=== PATIENT | female | born 1940 | race Caucasian/White ===

== ENCOUNTER 2018-12-10 18:37 | Inpatient (IN) ==
[2018-12-10] MEDS ORDERED: ALUM/MAG/SIMETH/LIDO VISC 1:1 30 ML BOTTLE PO STA (18:58)
[2018-12-10] MEDS ORDERED: ONDANSETRON 4 MG/2 ML VIAL IV ONE ×2 (18:58→20:57)
[2018-12-10] MEDS ORDERED: MORPHINE 4 MG/1 ML VIAL IV ONE ×2 (18:58→20:57)
[2018-12-10 19:51] LABS: Basophils # 0.1 10*3/uL (0.0-0.2); Basophils % 0.7 % (0.0-0.8); Eosinophils # 0.2 10*3/uL (0.0-0.87); Eosinophils % 2.4 % (0.00-10.9); Hematocrit 40.9 VOL% (35.7-47.0); Hemoglobin 13.4 GM/DL (12.0-16.0); Immature Granulocytes % 0.3 %; Immature Granulocytes Absolute 0.02 #; Lymphocytes # 1.7 10*3/uL (1.4-4.0); Lymphocytes % 23.9 % (21.3-54.2); Mean Corpuscular HGB Conc 32.8 GM/DL (32-36); Mean Corpuscular Volume 86.7 FL (87-102); Mean Platelet Volume 11.6 FL (9.6-12.0); Monocytes % 7.4 % (1.7-12.7); Neutrophils % 65.3 % (38.7-73.9); Platelet Count 282 T/CUMM (130-400); Red Blood Count 4.72 MC/CUMM (3.8-5.5); Red Cell Distribution Width 13.6 % (9.3-17.3); White Blood Count 7.1 T/CUMM (4-12)
[2018-12-10 20:04] LABS: PT Patient Result 10.4 SECS; Partial Thromboplastin Time 26.9 SECS (0-40)
[2018-12-10 20:15] LABS: Alanine Aminotransferase 26 U/L (13-56); Albumin 3.6 G/DL (3.4-5.0); Alkaline Phosphatase 88 U/L (45-117); Aspartate Amino Transferase 19 U/L (0-37); Bilirubin,Total < 0.39 MG/DL (0.2-1.0); Blood Urea Nitrogen 18 MG/DL (7-18); Calcium 8.9 MG/DL (8.5-10.1); Glucose 199 MG/DL (74-106); Osmolality,Calculated 284.5 MOS/KG (273-304); Total Protein 7.2 G/DL (6.4-8.3)
[2018-12-10 20:22] LABS: Troponin I 0.105 NG/ML (0.00-0.045)
[2018-12-10] MEDS ORDERED: NITROGLYCERIN 2% OINT 1 INCH/GM PACK TOP STA (20:57)
[2018-12-10] MEDS ORDERED: ENOXAPARIN 100 MG/ML SYRINGE SUBCUT STA (21:09)
[2018-12-10] MEDS ORDERED: METOPROLOL TARTRATE 5 MG/5 ML VIAL IV STA (21:09)
[2018-12-10] MEDS ORDERED: ASPIRIN 325 MG TABLET PO STA (21:15)
[2018-12-10] MEDS ORDERED: ASPIRIN 325 MG TABLET ONE (21:16)
[2018-12-10] MEDS ORDERED: DOCUSATE SODIUM 100 MG CAPSULE PO PRN (22:01)
[2018-12-10] MEDS ORDERED: MORPHINE 4 MG/1 ML VIAL IV PRN (22:01)
[2018-12-10] MEDS ORDERED: ONDANSETRON 4 MG/2 ML VIAL IV PRN (22:01)
[2018-12-10] MEDS ORDERED: GLUCAGON 1 MG VIAL IM PRN (22:17)
[2018-12-10] MEDS ORDERED: DEXTROSE 50% 25 GM/50 ML VIAL IV PRN (22:17)
[2018-12-11] MEDS: CARVEDILOL 3.125 MG TABLET PO SCH ×3 (00:30→20:59)
[2018-12-11] MEDS: INSULIN REGULAR 100 UNIT/ML SUBCUT SCH ×5 (00:30→21:02)
[2018-12-11] MEDS: SODIUM CHLORIDE 0.9% 1,000 ML IV SCH ×2 (00:31→14:18)
[2018-12-11 04:40] LABS: Basophils # 0.1 10*3/uL (0.0-0.2); Basophils % 0.7 % (0.0-0.8); Eosinophils # 0.2 10*3/uL (0.0-0.87); Eosinophils % 2.9 % (0.00-10.9); Hematocrit 37.8 VOL% (35.7-47.0); Hemoglobin 12.4 GM/DL (12.0-16.0); Immature Granulocytes % 0.4 %; Immature Granulocytes Absolute 0.03 #; Lymphocytes # 2.8 10*3/uL (1.4-4.0); Lymphocytes % 37.9 % (21.3-54.2); Mean Corpuscular HGB Conc 32.8 GM/DL (32-36); Mean Corpuscular Volume 87.9 FL (87-102); Mean Platelet Volume 11.8 FL (9.6-12.0); Neutrophils % 49.1 % (38.7-73.9); Platelet Count 250 T/CUMM (130-400); Red Cell Distribution Width 14.2 % (9.3-17.3); White Blood Count 7.3 T/CUMM (4-12)
[2018-12-11 05:06] LABS: Calcium 8.8 MG/DL (8.5-10.1)
[2018-12-11] MEDS ORDERED: metFORMIN 500 MG TABLET PO SCH (08:00)
[2018-12-11 08:19] LABS: CKMB % 7.3 %
[2018-12-11 08:23] LABS: Troponin I 1.13 NG/ML (0.00-0.045)
[2018-12-11] MEDS ORDERED: diphenhydrAMINE CAP 25 MG CAPSULE PO ONE (08:24)
[2018-12-11] MEDS ORDERED: DIAZEPAM 5 MG TABLET PO ONE (08:24)
[2018-12-11] MEDS ORDERED: SODIUM CHLORIDE 0.9% 1,000 ML IV SCH (08:30)
[2018-12-11] MEDS ORDERED: ASPIRIN 325 MG TABLET ONE (08:46)
[2018-12-11] MEDS ORDERED: ASPIRIN CHEW 81 MG TABLET PO ONE (08:53)
[2018-12-11] MEDS ORDERED: ENOXAPARIN 80 MG/0.8 ML SYRINGE SUBCUT SCH ×2 (09:00)
[2018-12-11] MEDS ORDERED: CLOPIDOGREL 75 MG TABLET PO SCH (09:00)
[2018-12-11] MEDS ORDERED: LIDOCAINE 1% 20 ML VIAL ONE (09:03)
[2018-12-11] MEDS ORDERED: MIDAZOLAM 2 MG/2 ML VIAL ONE (09:12)
[2018-12-11] MEDS ORDERED: fentaNYL 100 MCG/2 ML VIAL ONE (09:17)
[2018-12-11] MEDS: LOSARTAN 50 MG TABLET PO SCH (10:43)
[2018-12-11] MEDS: GLIMEPIRIDE 2 MG TABLET PO SCH (10:43)
[2018-12-11] MEDS: ASPIRIN EC 81 MG TABLET PO SCH (10:44)
[2018-12-11 11:41] LABS: CKMB % 6.8 %
[2018-12-11 11:42] LABS: Troponin I 0.841 NG/ML (0.00-0.045)
[2018-12-11] MEDS ORDERED: ACETAMINOPHEN 325 MG TABLET PO PRN (14:05)
[2018-12-11] MEDS: ATORVASTATIN 20 MG TABLET PO SCH (21:00)
[2018-12-11] MEDS: ENOXAPARIN 40 MG/0.4 ML SYRINGE SUBCUT SCH (21:03)
[2018-12-11] MEDS ORDERED: ENOXAPARIN 40 MG/0.4 ML SYRINGE SUBCUT SCH (22:30)
[2018-12-12] MEDS: SODIUM CHLORIDE 0.9% 1,000 ML IV SCH ×2 (02:25→21:09)
[2018-12-12 05:01] LABS: Basophils % 0.5 % (0.0-0.8); Eosinophils # 0.2 10*3/uL (0.0-0.87); Eosinophils % 3.6 % (0.00-10.9); Hematocrit 37.4 VOL% (35.7-47.0); Hemoglobin 12.1 GM/DL (12.0-16.0); Immature Granulocytes % 0.5 %; Immature Granulocytes Absolute 0.03 #; Lymphocytes # 1.8 10*3/uL (1.4-4.0); Lymphocytes % 29.7 % (21.3-54.2); Mean Corpuscular HGB Conc 32.4 GM/DL (32-36); Mean Corpuscular Volume 88.4 FL (87-102); Mean Platelet Volume 11.3 FL (9.6-12.0); Monocytes % 9.3 % (1.7-12.7); Neutrophils % 56.4 % (38.7-73.9); Platelet Count 235 T/CUMM (130-400); Red Blood Count 4.23 MC/CUMM (3.8-5.5); Red Cell Distribution Width 14.1 % (9.3-17.3); White Blood Count 6.1 T/CUMM (4-12)
[2018-12-12 05:40] LABS: Calcium 8.7 MG/DL (8.5-10.1); Osmolality,Calculated 289.8 MOS/KG (273-304)
[2018-12-12 05:42] LABS: Risk Ratio 4.49; VLDL CHOLESTEROL 78.4 MG/DL
[2018-12-12 05:44] LABS: Bilirubin,Total 1.1 MG/DL (0.2-1.0); Calcium 8.5 MG/DL (8.5-10.1); Osmolality,Calculated 285.1 MOS/KG (273-304); Total Protein 6.1 G/DL (6.4-8.3)
[2018-12-12] MEDS: INSULIN REGULAR 100 UNIT/ML SUBCUT SCH ×4 (09:09→21:10)
[2018-12-12] MEDS: CARVEDILOL 3.125 MG TABLET PO SCH ×2 (09:16→16:53)
[2018-12-12] MEDS: LOSARTAN 50 MG TABLET PO SCH (09:17)
[2018-12-12] MEDS: ASPIRIN EC 81 MG TABLET PO SCH (09:17)
[2018-12-12] MEDS: ENOXAPARIN 40 MG/0.4 ML SYRINGE SUBCUT SCH ×2 (09:17→21:11)
[2018-12-12] MEDS: GLIMEPIRIDE 2 MG TABLET PO SCH (09:17)
[2018-12-12] MEDS ORDERED: NITROGLYCERIN SL 0.4 MG TABLET SL ONE (10:36)
[2018-12-12] MEDS ORDERED: NITROGLYCERIN SL 0.4 MG TABLET SL PRN (11:00)
[2018-12-12] MEDS: CLORAZEPATE 3.75 MG TABLET PO SCH ×3 (15:05→21:10)
[2018-12-12] MEDS: GABAPENTIN 100 MG CAPSULE PO SCH ×2 (21:09→21:18)
[2018-12-12] MEDS: CARVEDILOL 6.25 MG TABLET PO SCH (21:10)
[2018-12-12] MEDS: ATORVASTATIN 20 MG TABLET PO SCH (21:10)
[2018-12-12] MEDS: ACETAMINOPHEN 325 MG TABLET PO SCH (21:11)
[2018-12-12] MEDS: PANTOPRAZOLE 20 MG TABLET PO SCH (21:13)
[2018-12-13] MEDS: SODIUM CHLORIDE 0.9% 1,000 ML IV SCH ×3 (04:42→19:10)
[2018-12-13 05:59] LABS: Basophils % 0.5 % (0.0-0.8); Eosinophils # 0.2 10*3/uL (0.0-0.87); Eosinophils % 4.1 % (0.00-10.9); Hematocrit 35.2 VOL% (35.7-47.0); Hemoglobin 11.6 GM/DL (12.0-16.0); Immature Granulocytes % 0.4 %; Immature Granulocytes Absolute 0.02 #; Lymphocytes # 1.9 10*3/uL (1.4-4.0); Lymphocytes % 33.8 % (21.3-54.2); Mean Corpuscular Volume 88.4 FL (87-102); Mean Platelet Volume 11.8 FL (9.6-12.0); Monocytes % 9.3 % (1.7-12.7); Neutrophils % 51.9 % (38.7-73.9); Platelet Count 213 T/CUMM (130-400); Red Blood Count 3.98 MC/CUMM (3.8-5.5); Red Cell Distribution Width 13.9 % (9.3-17.3); White Blood Count 5.6 T/CUMM (4-12)
[2018-12-13 06:27] LABS: Calcium 8.3 MG/DL (8.5-10.1)
[2018-12-13] MEDS: ASPIRIN EC 81 MG TABLET PO SCH (08:52)
[2018-12-13] MEDS: GABAPENTIN 100 MG CAPSULE PO SCH ×3 (08:52→23:10)
[2018-12-13] MEDS: CARVEDILOL 6.25 MG TABLET PO SCH ×2 (08:53→16:36)
[2018-12-13] MEDS: ACETAMINOPHEN 325 MG TABLET PO SCH ×2 (08:53→23:08)
[2018-12-13] MEDS: CLORAZEPATE 3.75 MG TABLET PO SCH ×3 (08:53→23:08)
[2018-12-13] MEDS: PANTOPRAZOLE 20 MG TABLET PO SCH (08:53)
[2018-12-13] MEDS: GLIMEPIRIDE 2 MG TABLET PO SCH (08:53)
[2018-12-13] MEDS: LOSARTAN 25 MG TABLET PO SCH (08:53)
[2018-12-13] MEDS: ENOXAPARIN 40 MG/0.4 ML SYRINGE SUBCUT SCH ×2 (08:53→23:10)
[2018-12-13] MEDS: INSULIN REGULAR 100 UNIT/ML SUBCUT SCH ×4 (08:56→23:09)
[2018-12-13] MEDS ORDERED: MAGNESIUM SULF RIDER 2 GM in PREMIX 1 EACH IV PRN (09:36)
[2018-12-13] MEDS ORDERED: MAGNESIUM SULF RIDER 4 GM in PREMIX 1 EACH IV PRN (09:36)
[2018-12-13] MEDS: POTASSIUM CHLORIDE 20 MEQ TABLET PO PRN ×3 (09:56→17:49)
[2018-12-13] MEDS ORDERED: CEFUROXIME INJ 1,500 MG in SYRINGE 1 EACH IV ONE (13:52)
[2018-12-13] MEDS ORDERED: DEXTROSE 50% 25 GM/50 ML VIAL IV PRN (13:52)
[2018-12-13] MEDS ORDERED: GLUCAGON 1 MG VIAL IM PRN (13:52)
[2018-12-13 14:41] LABS: ABG Base Excess -1.4 MMOL/L (-2.5-2.5); ABG HCO3 23.2 MMOL/L (20-26); ABG Oxygen Saturation 97.5 % (95-100); ABG PH 7.416 (7.35-7.45); ABG PO2 85.5 MM HG (80-95); ABG TCO2 19.8 MMOL/L (23-27)
[2018-12-13] MEDS: CHLORHEXIDINE 4% SOLN 118 ML BOTTLE TOP SCH ×2 (15:43→23:09)
[2018-12-13] MEDS: ATORVASTATIN 20 MG TABLET PO SCH (23:08)
[2018-12-13] MEDS: CHLORHEXIDINE 0.12% ORAL RINSE 60 ML BOTTLE SWISH/SPIT SCH (23:09)
[2018-12-14] MEDS ORDERED: PAPAVERINE 60 MG/2 ML VIAL ONE (04:21)
[2018-12-14] MEDS ORDERED: VANCOMYCIN 1,000 MG VIAL ONE (04:22)
[2018-12-14] MEDS ORDERED: FAMOTIDINE 20 MG TABLET PO ONE (05:04)
[2018-12-14] MEDS ORDERED: DIAZEPAM 5 MG TABLET PO ONE (05:08)
[2018-12-14 05:40] LABS: Basophils % 0.7 % (0.0-0.8); Eosinophils # 0.2 10*3/uL (0.0-0.87); Eosinophils % 3.8 % (0.00-10.9); Hematocrit 34.6 VOL% (35.7-47.0); Hemoglobin 11.4 GM/DL (12.0-16.0); Immature Granulocytes % 0.5 %; Immature Granulocytes Absolute 0.03 #; Lymphocytes # 1.8 10*3/uL (1.4-4.0); Lymphocytes % 31.1 % (21.3-54.2); Mean Corpuscular HGB Conc 32.9 GM/DL (32-36); Mean Corpuscular Volume 86.9 FL (87-102); Mean Platelet Volume 11.6 FL (9.6-12.0); Monocytes % 10.1 % (1.7-12.7); Neutrophils % 53.8 % (38.7-73.9); Platelet Count 232 T/CUMM (130-400); Red Blood Count 3.98 MC/CUMM (3.8-5.5); Red Cell Distribution Width 13.9 % (9.3-17.3); White Blood Count 5.9 T/CUMM (4-12)
[2018-12-14 05:50] LABS: Osmolality,Calculated 288.8 MOS/KG (273-304)
[2018-12-14] MEDS: CARVEDILOL 6.25 MG TABLET PO SCH ×2 (05:53→08:43)
[2018-12-14] MEDS: SODIUM CHLORIDE 0.9% 1,000 ML IV SCH ×2 (05:54→08:43)
[2018-12-14] MEDS: LOSARTAN 25 MG TABLET PO SCH ×2 (05:55→08:44)
[2018-12-14] MEDS ORDERED: CEFUROXIME 1,500 MG VIAL ONE (06:53)
[2018-12-14 07:45] LABS: ABG Base Excess -1.1 MMOL/L (-2.5-2.5); ABG HCO3 23.5 MMOL/L (20-26); ABG PCO2 31.8 MM HG (35-48); ABG PH 7.451 (7.35-7.45); ABG TCO2 19.9 MMOL/L (23-27); Glucose Heart Surgery 144 MG/DL (74-106); Hemoglobin Heart Surgery 10.7 G/DL (12.0-16.0); Ionized Calcium Arterial 1.18 MMOL/L (1.21-1.46); PCO2 Patient Temp Arterial 31.8 MMHG; PH Patient Temp Arterial 7.451; Patient Temperature 37 CELCIUS; Potassium Heart/CVR 3.5 MMOL/L (3.5-5.1); Sodium Heart/CVR 140 MMOL/L (135-145)
[2018-12-14] MEDS ORDERED: PHENYLEPHRINE DRIP 40 MG/250 ML PREMIX IV ONE (07:53)
[2018-12-14] MEDS ORDERED: NITROPRUSSIDE 50 MG/2 ML VIAL ONE (07:53)
[2018-12-14] MEDS ORDERED: SODIUM BICARBONATE 50 MEQ/50 ML VIAL IV ONE ×2 (07:53→10:46)
[2018-12-14] MEDS ORDERED: POTASSIUM CHLORIDE RIDER 100 ML IV ONE (07:54)
[2018-12-14] MEDS ORDERED: ALBUMIN 5% 12.5 GM/250 ML VIAL IV ONE ×2 (07:54→09:33)
[2018-12-14] MEDS ORDERED: CALCIUM CHLORIDE 1,000 MG/10 ML SYRINGE IV ONE (07:54)
[2018-12-14] MEDS: INSULIN REGULAR 100 UNIT/ML SUBCUT SCH ×2 (08:43→10:46)
[2018-12-14] MEDS: GLIMEPIRIDE 2 MG TABLET PO SCH (08:44)
[2018-12-14] MEDS: CHLORHEXIDINE 4% SOLN 118 ML BOTTLE TOP SCH (08:44)
[2018-12-14] MEDS: ACETAMINOPHEN 325 MG TABLET PO SCH (08:45)
[2018-12-14] MEDS: CLORAZEPATE 3.75 MG TABLET PO SCH (08:45)
[2018-12-14] MEDS: PANTOPRAZOLE 20 MG TABLET PO SCH (08:45)
[2018-12-14] MEDS: ENOXAPARIN 40 MG/0.4 ML SYRINGE SUBCUT SCH (08:45)
[2018-12-14] MEDS: CHLORHEXIDINE 0.12% ORAL RINSE 60 ML BOTTLE SWISH/SPIT SCH (08:45)
[2018-12-14] MEDS: GABAPENTIN 100 MG CAPSULE PO SCH (08:45)
[2018-12-14] MEDS: ASPIRIN EC 81 MG TABLET PO SCH (08:45)
[2018-12-14] MEDS ORDERED: HEPARIN/NACL 0.9% 2 UNITS/ML 500 ML IV ONE (09:12)
[2018-12-14 09:14] LABS: Hematocrit Heart Surgery 20.9 PERCENT (37-47); Hemoglobin Heart Surgery 6.7 G/DL (12.0-16.0); PCO2 Patient Temp Venous 33.6 MM HG; PH Patient Temp Venous 7.435; PO2 Patient Temp Venous 35.4 MM HG; Potassium Heart/CVR 4.6 MMOL/L (3.5-5.1); VBG Base Excess -1.1 MEQ/L (0-4); VBG HCO3 23.3 MEQ/L (24-28); VBG Oxygen Saturation 83.4 %; VBG PCO2 38.9 MMHG (41-51); VBG PH 7.392; VBG PO2 43.5 MMHG (17-40)
[2018-12-14 09:23] LABS: Apearance,Urine CLEAR (Clear); Bacteria,Urine Few /HPF (Few); Bilirubin,Urine Negative (Negative); Blood, Urine Negative (Negative); Glucose,Urine (UA) Negative (Negative); Ketones,Urine Negative (Negative); Mucus,Urine Occasional /LPF (Occasional); Nitrite,Urine Negative (Negative); Protein,Urine Negative; RBC,Urine <1 /HPF (0-4); Squamous Epithelial Cell,Urine Occasional /HPF (0-10); Urine Color Straw (Yellow); Urine Specific Gravity 1.006 (1.001-1.035); Urine Urobilinogen < 2.0 EU/DL (0.2-1.0); WBC,Urine <1 /HPF (0-6)
[2018-12-14 09:47] LABS: Hematocrit Heart Surgery 21.5 PERCENT (37-47); Hemoglobin Heart Surgery 6.9 G/DL (12.0-16.0); PCO2 Patient Temp Venous 28.5 MM HG; PH Patient Temp Venous 7.507; PO2 Patient Temp Venous 27.8 MM HG; Potassium Heart/CVR 4.7 MMOL/L (3.5-5.1); VBG HCO3 24.2 MEQ/L (24-28); VBG Oxygen Saturation 75.5 %; VBG PH 7.462; VBG PO2 34.3 MMHG (17-40)
[2018-12-14] MEDS ORDERED: PHENYLEPHRINE DRIP 20 MG/250 ML PREMIX IV ONE (10:00)
[2018-12-14] MEDS ORDERED: SUFentanil 250 MCG/5 ML AMP ONE (10:00)
[2018-12-14] MEDS ORDERED: CALCIUM CHLORIDE 1,000 MG/10 ML VIAL IV ONE ×2 (10:00→11:35)
[2018-12-14] MEDS ORDERED: VECURONIUM 10 MG VIAL IV ONE (10:01)
[2018-12-14] MEDS ORDERED: ePHEDrine 50 MG/ML AMP ONE (10:01)
[2018-12-14] MEDS ORDERED: MIDAZOLAM 10 MG/2 ML VIAL ONE ×3 (10:01→11:34)
[2018-12-14] MEDS ORDERED: diphenhydrAMINE 50 MG/1 ML VIAL ONE (10:01)
[2018-12-14] MEDS ORDERED: LACTATED RINGERS 1,000 ML IV ONE (10:02)
[2018-12-14] MEDS ORDERED: FAMOTIDINE 20 MG/2 ML VIAL IV ONE (10:02)
[2018-12-14] MEDS ORDERED: SODIUM CHLORIDE 0.9% 1,000 ML IV ONE (10:02)
[2018-12-14] MEDS ORDERED: SODIUM CHLORIDE 0.9% 100 ML IV ONE (10:02)
[2018-12-14] MEDS ORDERED: SODIUM CHLORIDE 0.9% 250 ML IV ONE (10:02)
[2018-12-14 10:35] LABS: ABG Base Excess 1.3 MMOL/L (-2.5-2.5); ABG HCO3 25.6 MMOL/L (20-26); ABG PCO2 35.1 MM HG (35-48); ABG TCO2 23.1 MMOL/L (23-27); Glucose Heart Surgery 275 MG/DL (74-106); Hematocrit Heart Surgery 25.8 PERCENT (37-47); Hemoglobin Heart Surgery 8.3 G/DL (12.0-16.0); Ionized Calcium Arterial 1.38 MMOL/L (1.21-1.46); PCO2 Patient Temp Arterial 35.1 MMHG; Patient Temperature 37 CELCIUS; Potassium Heart/CVR 4.2 MMOL/L (3.5-5.1); Sodium Heart/CVR 136 MMOL/L (135-145)
[2018-12-14] MEDS ORDERED: ALBUMIN 25% 25 GM/100 ML VIAL IV ONE (10:46)
[2018-12-14] MEDS ORDERED: HEPARIN 10,000 UNIT/10 ML VIAL ONE (10:46)
[2018-12-14] MEDS ORDERED: MAGNESIUM SULFATE 5 GM/10 ML VIAL IV ONE (10:46)
[2018-12-14] MEDS ORDERED: DEXTROSE 5% KCL 20 MEQ 20 MEQ/1,000 ML BAG IV ONE (10:46)
[2018-12-14] MEDS ORDERED: PROTAMINE SULFATE 250 MG/25 ML VIAL IV ONE (10:46)
[2018-12-14] MEDS ORDERED: MANNITOL 100 GM/500 ML BAG IV ONE (10:46)
[2018-12-14] MEDS ORDERED: FUROSEMIDE 20 MG/2 ML VIAL ONE (10:47)
[2018-12-14] MEDS ORDERED: methylPREDNISolone SOD SUC 1,000 MG/8 ML VIAL ONE (10:47)
[2018-12-14] MEDS ORDERED: PROTAMINE SULFATE 50 MG/5 ML VIAL IV ONE (10:47)
[2018-12-14] MEDS ORDERED: DOBUTamine 500 MG/250 ML PREMIX IV ONE ×2 (10:57→11:35)
[2018-12-14] MEDS: NITROGLYCERIN DRIP 50 MG/250 ML BOTTLE IV PRN (11:21)
[2018-12-14] MEDS ORDERED: SEVOFLURANE 1 UNIT/15 MINUTE INH ONE (11:35)
[2018-12-14] MEDS ORDERED: INSULIN REGULAR 100 UNIT/ML IV PRN (11:48)
[2018-12-14] MEDS ORDERED: MIDAZOLAM 10 MG/2 ML VIAL IV PRN (11:48)
[2018-12-14] MEDS ORDERED: PHENYLEPHRINE DRIP 40 MG/250 ML PREMIX IV PRN (11:48)
[2018-12-14] MEDS ORDERED: MAGNESIUM SULF RIDER 4 GM in PREMIX 1 EACH IV PRN (11:48)
[2018-12-14] MEDS ORDERED: CALCIUM CHLORIDE 1,000 MG/10 ML SYRINGE IV PRN (11:48)
[2018-12-14] MEDS ORDERED: MORPHINE 10 MG/1 ML VIAL IV PRN (11:48)
[2018-12-14] MEDS ORDERED: ACETAMINOPHEN 650 MG SUPP RECTAL PRN (11:48)
[2018-12-14] MEDS ORDERED: MIDAZOLAM 2 MG/2 ML VIAL IV PRN (11:48)
[2018-12-14] MEDS ORDERED: DEXTROSE 50% 25 GM/50 ML VIAL IV PRN ×2 (11:48)
[2018-12-14] MEDS ORDERED: VECURONIUM 10 MG VIAL IV PRN ×2 (11:48)
[2018-12-14] MEDS ORDERED: NITROPRUSSIDE 100 MG in DEXTROSE 5% 250 ML IV PRN (11:48)
[2018-12-14] MEDS ORDERED: MAGNESIUM SULF RIDER 2 GM in PREMIX 1 EACH IV PRN (11:48)
[2018-12-14] MEDS ORDERED: INSULIN REGULAR 100 UNIT/ML IV ONE (11:48)
[2018-12-14] MEDS ORDERED: LACTATED RINGERS 250 ML IV PRN (11:48)
[2018-12-14] MEDS ORDERED: MORPHINE 4 MG/1 ML VIAL IV PRN (11:48)
[2018-12-14] MEDS ORDERED: ONDANSETRON 4 MG/2 ML VIAL IV PRN (11:48)
[2018-12-14 11:53] LABS: ABG Base Excess 2.1 MMOL/L (-2.5-2.5); ABG HCO3 26.3 MMOL/L (20-26); ABG Oxygen Saturation 98.3 % (95-100); ABG PCO2 37.1 MM HG (35-48); ABG PH 7.452 (7.35-7.45); ABG PO2 89.8 MM HG (80-95); ABG TCO2 23.5 MMOL/L (23-27); Glucose Heart Surgery 278 MG/DL (74-106); Hematocrit Heart Surgery 30.4 PERCENT (37-47); Hemoglobin Heart Surgery 9.8 G/DL (12.0-16.0); Potassium Heart/CVR 3.8 MMOL/L (3.5-5.1)
[2018-12-14] MEDS: POTASSIUM CHLORIDE RIDER 20 MEQ in PREMIX 1 EACH IV PRN ×5 (11:55→22:04)
[2018-12-14] MEDS ORDERED: DOBUTamine 500 MG/250 ML PREMIX IV PRN (11:56)
[2018-12-14 12:00] LABS: Basophils % 0.4 % (0.0-0.8); Eosinophils # 0.1 10*3/uL (0.0-0.87); Eosinophils % 1.9 % (0.00-10.9); Hematocrit 28.8 VOL% (35.7-47.0); Hemoglobin 9.4 GM/DL (12.0-16.0); Immature Granulocytes % 0.9 %; Immature Granulocytes Absolute 0.04 #; Lymphocytes # 0.8 10*3/uL (1.4-4.0); Lymphocytes % 16.8 % (21.3-54.2); Mean Corpuscular HGB Conc 32.6 GM/DL (32-36); Mean Platelet Volume 11.7 FL (9.6-12.0); Monocytes % 5.7 % (1.7-12.7); Neutrophils % 74.3 % (38.7-73.9); Platelet Count 217 T/CUMM (130-400); Red Blood Count 3.35 MC/CUMM (3.8-5.5); White Blood Count 4.7 T/CUMM (4-12)
[2018-12-14] MEDS ORDERED: INSULIN REGULAR DRIP 100 ML IV SCH (12:00)
[2018-12-14] MEDS ORDERED: SODIUM CHLORIDE 0.45% 1,000 ML IV SCH ×2 (12:00)
[2018-12-14 12:03] LABS: INR 1.1; PT Patient Result 11.8 SECS; Partial Thromboplastin Time 25.4 SECS (0-40)
[2018-12-14 12:12] LABS: Albumin 3.4 G/DL (3.4-5.0); Bilirubin,Total 1.5 MG/DL (0.2-1.0); Calcium 9.7 MG/DL (8.5-10.1); Osmolality,Calculated 289.3 MOS/KG (273-304); Total Protein 6.3 G/DL (6.4-8.3)
[2018-12-14 12:15] LABS: CKMB % 5.8 %
[2018-12-14 12:18] LABS: Troponin I 9.04 NG/ML (0.00-0.045)
[2018-12-14] MEDS: POTASSIUM CHLORIDE RIDER 10 MEQ in PREMIX 1 EACH IV PRN ×3 (13:03→18:23)
[2018-12-14] MEDS: KETOROLAC 30 MG/1 ML VIAL IV SCH ×2 (13:31→17:20)
[2018-12-14 14:54] LABS: ABG Base Excess -0.1 MMOL/L (-2.5-2.5); ABG HCO3 24.3 MMOL/L (20-26); ABG Oxygen Saturation 98.9 % (95-100); ABG PCO2 37.4 MM HG (35-48); ABG PH 7.417 (7.35-7.45); ABG TCO2 21.5 MMOL/L (23-27); Glucose Heart Surgery 224 MG/DL (74-106); Hematocrit Heart Surgery 34.8 PERCENT (37-47); Hemoglobin Heart Surgery 11.3 G/DL (12.0-16.0); Potassium Heart/CVR 3.7 MMOL/L (3.5-5.1)
[2018-12-14] MEDS: ALBUMIN 5% 12.5 GM in PREMIX 1 EACH IV PRN ×3 (15:08→21:18)
[2018-12-14] MEDS: LACTATED RINGERS 1,000 ML IV PRN ×2 (15:29→18:31)
[2018-12-14 17:45] LABS: ABG HCO3 26.3 MMOL/L (20-26); ABG PCO2 39.4 MM HG (35-48); ABG PH 7.435 (7.35-7.45); ABG TCO2 23.8 MMOL/L (23-27)
[2018-12-14 17:46] LABS: ABG Base Excess 2.2 MMOL/L (-2.5-2.5); ABG Oxygen Saturation 98.6 % (95-100); Glucose Heart Surgery 131 MG/DL (74-106); Hematocrit Heart Surgery 32.8 PERCENT (37-47); Hemoglobin Heart Surgery 10.6 G/DL (12.0-16.0); Potassium Heart/CVR 3.7 MMOL/L (3.5-5.1)
[2018-12-14] MEDS: CEFUROXIME INJ 1,500 MG in SYRINGE 1 EACH IV SCH (19:19)
[2018-12-14 20:56] LABS: ABG HCO3 25.3 MMOL/L (20-26); ABG Oxygen Saturation 98.7 % (95-100); ABG PCO2 39.1 MM HG (35-48); Glucose Heart Surgery 168 MG/DL (74-106); Hematocrit Heart Surgery 31.5 PERCENT (37-47); Hemoglobin Heart Surgery 10.2 G/DL (12.0-16.0); Potassium Heart/CVR 3.8 MMOL/L (3.5-5.1)
[2018-12-14] MEDS ORDERED: CHLORHEXIDINE 0.12% ORAL RINSE 60 ML BOTTLE SWISH/SPIT SCH (21:00)
[2018-12-14 21:17] LABS: CKMB % 4.5 %
[2018-12-14 21:21] LABS: Troponin I 6.98 NG/ML (0.00-0.045)
[2018-12-14 23:39] LABS: ABG Base Excess 1.2 MMOL/L (-2.5-2.5); ABG HCO3 25.5 MMOL/L (20-26); ABG Oxygen Saturation 98.7 % (95-100); ABG PH 7.431 (7.35-7.45); Glucose Heart Surgery 129 MG/DL (74-106); Hematocrit Heart Surgery 30.5 PERCENT (37-47); Hemoglobin Heart Surgery 9.8 G/DL (12.0-16.0); Potassium Heart/CVR 4.6 MMOL/L (3.5-5.1)
[2018-12-15] MEDS: LACTATED RINGERS 1,000 ML IV PRN ×2 (00:10→05:48)
[2018-12-15] MEDS: KETOROLAC 30 MG/1 ML VIAL IV SCH ×4 (01:20→17:03)
[2018-12-15 02:00] LABS: ABG Base Excess 1.3 MMOL/L (-2.5-2.5); ABG HCO3 25.6 MMOL/L (20-26); ABG Oxygen Saturation 98.4 % (95-100); ABG PCO2 38.2 MM HG (35-48); ABG PH 7.433 (7.35-7.45); ABG PO2 96.2 MM HG (80-95); ABG TCO2 23.2 MMOL/L (23-27); Glucose Heart Surgery 118 MG/DL (74-106); Hematocrit Heart Surgery 30.2 PERCENT (37-47); Hemoglobin Heart Surgery 9.8 G/DL (12.0-16.0); Potassium Heart/CVR 4.1 MMOL/L (3.5-5.1)
[2018-12-15] MEDS: NITROGLYCERIN DRIP 50 MG/250 ML BOTTLE IV PRN (02:42)
[2018-12-15] MEDS: POTASSIUM CHLORIDE RIDER 20 MEQ in PREMIX 1 EACH IV PRN ×2 (02:45→04:44)
[2018-12-15] MEDS ORDERED: FUROSEMIDE 40 MG/4 ML VIAL IV ONE (03:06)
[2018-12-15 04:19] LABS: ABG Base Excess 1.7 MMOL/L (-2.5-2.5); ABG HCO3 25.1 MMOL/L (20-26); ABG Oxygen Saturation 96.1 % (95-100); ABG PH 7.473 (7.35-7.45); ABG PO2 80.7 MM HG (80-95); ABG TCO2 26.1 MMOL/L (23-27); Glucose Heart Surgery 114 MG/DL (74-106); Hemoglobin Heart Surgery 10.6 G/DL (12.0-16.0); Potassium Heart/CVR 4.5 MMOL/L (3.5-5.1)
[2018-12-15 04:50] LABS: Hematocrit 30.2 VOL% (35.7-47.0); Hemoglobin 9.9 GM/DL (12.0-16.0); Immature Granulocytes % 0.4 %; Immature Granulocytes Absolute 0.04 #; Lymphocytes # 0.6 10*3/uL (1.4-4.0); Lymphocytes % 6.7 % (21.3-54.2); Mean Corpuscular HGB Conc 32.8 GM/DL (32-36); Mean Corpuscular Volume 85.6 FL (87-102); Mean Platelet Volume 12.5 FL (9.6-12.0); Monocytes % 4.9 % (1.7-12.7); Platelet Count 168 T/CUMM (130-400); Red Blood Count 3.53 MC/CUMM (3.8-5.5); Red Cell Distribution Width 16.2 % (9.3-17.3); White Blood Count 9.4 T/CUMM (4-12)
[2018-12-15] MEDS: ALBUMIN 5% 12.5 GM in PREMIX 1 EACH IV PRN (04:57)
[2018-12-15 05:18] LABS: Albumin 3.8 G/DL (3.4-5.0); Bilirubin,Direct 0.17 MG/DL (0.0-0.20); Bilirubin,Total 0.8 MG/DL (0.2-1.0); Osmolality,Calculated 273.8 MOS/KG (273-304); Total Protein 6.6 G/DL (6.4-8.3)
[2018-12-15 05:19] LABS: CKMB % 3.5 %
[2018-12-15 05:20] LABS: Troponin I 3.9 NG/ML (0.00-0.045)
[2018-12-15] MEDS: CEFUROXIME INJ 1,500 MG in SYRINGE 1 EACH IV SCH (07:34)
[2018-12-15] MEDS ORDERED: SIMETHICONE CHEW 80 MG TABLET PO PRN (07:38)
[2018-12-15] MEDS ORDERED: MAGNESIUM HYDROXIDE SUSP 30 ML UDCUP PO PRN (07:38)
[2018-12-15] MEDS ORDERED: ZALEPLON 5 MG CAPSULE PO PRN (07:38)
[2018-12-15] MEDS ORDERED: GLUCAGON 1 MG VIAL IM PRN ×2 (07:38)
[2018-12-15] MEDS ORDERED: ACETAMINOPHEN 325 MG TABLET PO PRN (07:38)
[2018-12-15] MEDS ORDERED: ALUMINUM/MAGNES/SIMETH MAX STR 30 ML UDCUP PO PRN (07:38)
[2018-12-15] MEDS ORDERED: oxyCODONE/ACETAMINOPHEN 5-325 MG TABLET PO PRN (07:38)
[2018-12-15] MEDS ORDERED: ONDANSETRON 4 MG/2 ML VIAL IV PRN (07:38)
[2018-12-15] MEDS ORDERED: MAGNESIUM SULF RIDER 2 GM in PREMIX 1 EACH IV PRN (07:38)
[2018-12-15] MEDS ORDERED: KETOROLAC 30 MG/1 ML VIAL IV SCH (07:38)
[2018-12-15] MEDS ORDERED: MAGNESIUM SULF RIDER 4 GM in PREMIX 1 EACH IV PRN (07:38)
[2018-12-15] MEDS ORDERED: POTASSIUM CHLORIDE 20 MEQ TABLET PO PRN (07:38)
[2018-12-15] MEDS ORDERED: DEXTROSE 50% 25 GM/50 ML VIAL IV PRN ×2 (07:38)
[2018-12-15] MEDS ORDERED: INSULIN REGULAR 100 UNIT/ML ONE (07:50)
[2018-12-15] MEDS ORDERED: INSULIN REGULAR 100 UNIT/ML SUBCUT SCH (08:00)
[2018-12-15] MEDS: SODIUM CHLOR 0.45% KCL 20 MEQ 20 MEQ/1,000 ML BAG IV SCH (08:54)
[2018-12-15] MEDS: PANTOPRAZOLE 40 MG TABLET PO SCH (08:55)
[2018-12-15] MEDS: FERROUS SULFATE 325 MG TABLET PO SCH (08:55)
[2018-12-15] MEDS: MULTIVITAMIN (CENTRUM) TABLET PO SCH (08:55)
[2018-12-15] MEDS: LOSARTAN 50 MG TABLET PO SCH (08:55)
[2018-12-15] MEDS: CHLORHEXIDINE 0.12% ORAL RINSE 60 ML BOTTLE SWISH/SPIT SCH ×2 (08:55→20:40)
[2018-12-15] MEDS: MAGNESIUM OXIDE 400 MG TABLET PO SCH ×2 (08:55→20:37)
[2018-12-15] MEDS: INSULIN REGULAR 100 UNIT/ML SUBCUT SCH ×5 (08:56→23:09)
[2018-12-15] MEDS: DOCUSATE SODIUM 100 MG CAPSULE PO SCH (08:56)
[2018-12-15] MEDS: metFORMIN 500 MG TABLET PO SCH ×2 (08:56→17:02)
[2018-12-15] MEDS: GLIMEPIRIDE 2 MG TABLET PO SCH (08:56)
[2018-12-15] MEDS: ASPIRIN EC 81 MG TABLET PO SCH (20:41)
[2018-12-16] MEDS: KETOROLAC 30 MG/1 ML VIAL IV SCH ×4 (01:05→17:57)
[2018-12-16] MEDS: INSULIN REGULAR 100 UNIT/ML SUBCUT SCH ×5 (02:00→21:19)
[2018-12-16 05:13] LABS: Basophils % 0.1 % (0.0-0.8); Eosinophils % 0.3 % (0.00-10.9); Hemoglobin 9.6 GM/DL (12.0-16.0); Immature Granulocytes % 0.7 %; Immature Granulocytes Absolute 0.06 #; Lymphocytes # 1.4 10*3/uL (1.4-4.0); Lymphocytes % 16.2 % (21.3-54.2); Mean Corpuscular Volume 87.5 FL (87-102); Mean Platelet Volume 12.9 FL (9.6-12.0); Monocytes % 10.1 % (1.7-12.7); Neutrophils % 72.6 % (38.7-73.9); Platelet Count 168 T/CUMM (130-400); Red Blood Count 3.43 MC/CUMM (3.8-5.5); Red Cell Distribution Width 16.1 % (9.3-17.3); White Blood Count 8.6 T/CUMM (4-12)
[2018-12-16 05:38] LABS: Alanine Aminotransferase 40 U/L (13-56); Albumin 3.2 G/DL (3.4-5.0); Alkaline Phosphatase 59 U/L (45-117); Aspartate Amino Transferase 29 U/L (0-37); Bilirubin,Indirect 0.5 MG/DL (0.0-1.0); Blood Urea Nitrogen 22 MG/DL (7-18); Calcium 8.7 MG/DL (8.5-10.1); Glucose 103 MG/DL (74-106); Osmolality,Calculated 279.5 MOS/KG (273-304); Total Protein 5.9 G/DL (6.4-8.3)
[2018-12-16] MEDS ORDERED: FUROSEMIDE 40 MG/4 ML VIAL IV ONE (06:00)
[2018-12-16] MEDS: CHLORHEXIDINE 0.12% ORAL RINSE 60 ML BOTTLE SWISH/SPIT SCH ×2 (08:45→21:12)
[2018-12-16] MEDS: GLIMEPIRIDE 2 MG TABLET PO SCH (08:45)
[2018-12-16] MEDS: MULTIVITAMIN (CENTRUM) TABLET PO SCH (08:45)
[2018-12-16] MEDS: LOSARTAN 50 MG TABLET PO SCH (08:45)
[2018-12-16] MEDS: PANTOPRAZOLE 40 MG TABLET PO SCH (08:45)
[2018-12-16] MEDS: MAGNESIUM OXIDE 400 MG TABLET PO SCH ×2 (08:45→21:08)
[2018-12-16] MEDS: FERROUS SULFATE 325 MG TABLET PO SCH (08:45)
[2018-12-16] MEDS: metFORMIN 500 MG TABLET PO SCH ×2 (08:45→16:10)
[2018-12-16] MEDS: DOCUSATE SODIUM 100 MG CAPSULE PO SCH (08:46)
[2018-12-16] MEDS: SODIUM CHLOR 0.45% KCL 20 MEQ 20 MEQ/1,000 ML BAG IV SCH (08:48)
[2018-12-16] MEDS: ASCORBIC ACID 500 MG TABLET PO SCH (21:08)
[2018-12-16] MEDS: ASPIRIN EC 81 MG TABLET PO SCH (21:08)
[2018-12-17] MEDS: KETOROLAC 30 MG/1 ML VIAL IV SCH ×4 (00:21→17:26)
[2018-12-17 04:29] LABS: Basophils % 0.1 % (0.0-0.8); Eosinophils # 0.2 10*3/uL (0.0-0.87); Eosinophils % 2.1 % (0.00-10.9); Hematocrit 34.1 VOL% (35.7-47.0); Hemoglobin 10.8 GM/DL (12.0-16.0); Immature Granulocytes % 0.4 %; Immature Granulocytes Absolute 0.03 #; Lymphocytes # 1.8 10*3/uL (1.4-4.0); Lymphocytes % 24.4 % (21.3-54.2); Mean Corpuscular HGB Conc 31.7 GM/DL (32-36); Mean Platelet Volume 12.6 FL (9.6-12.0); Monocytes % 10.3 % (1.7-12.7); Neutrophils % 62.7 % (38.7-73.9); Platelet Count 179 T/CUMM (130-400); Red Blood Count 3.92 MC/CUMM (3.8-5.5); Red Cell Distribution Width 15.9 % (9.3-17.3); White Blood Count 7.3 T/CUMM (4-12)
[2018-12-17 04:46] LABS: Alanine Aminotransferase 37 U/L (13-56); Albumin 3.1 G/DL (3.4-5.0); Alkaline Phosphatase 68 U/L (45-117); Aspartate Amino Transferase 20 U/L (0-37); Bilirubin,Indirect 0.5 MG/DL (0.0-1.0); Blood Urea Nitrogen 24 MG/DL (7-18); Calcium 8.9 MG/DL (8.5-10.1); Glucose 137 MG/DL (74-106); Osmolality,Calculated 284.4 MOS/KG (273-304); Total Protein 6.3 G/DL (6.4-8.3)
[2018-12-17] MEDS: GLIMEPIRIDE 2 MG TABLET PO SCH (09:19)
[2018-12-17] MEDS: metFORMIN 500 MG TABLET PO SCH ×2 (09:19→17:26)
[2018-12-17] MEDS: MAGNESIUM OXIDE 400 MG TABLET PO SCH ×2 (09:19→20:59)
[2018-12-17] MEDS: DOCUSATE SODIUM 100 MG CAPSULE PO SCH (09:20)
[2018-12-17] MEDS: ASCORBIC ACID 500 MG TABLET PO SCH ×2 (09:20→20:58)
[2018-12-17] MEDS: LOSARTAN 50 MG TABLET PO SCH (09:20)
[2018-12-17] MEDS: FERROUS SULFATE 325 MG TABLET PO SCH (09:20)
[2018-12-17] MEDS: INSULIN REGULAR 100 UNIT/ML SUBCUT SCH ×4 (09:20→20:59)
[2018-12-17] MEDS: MULTIVITAMIN (CENTRUM) TABLET PO SCH (09:20)
[2018-12-17] MEDS: PANTOPRAZOLE 40 MG TABLET PO SCH (09:20)
[2018-12-17] MEDS: CHLORHEXIDINE 0.12% ORAL RINSE 60 ML BOTTLE SWISH/SPIT SCH ×2 (09:21→20:59)
[2018-12-17] MEDS: ASPIRIN EC 81 MG TABLET PO SCH (20:58)
[2018-12-18] MEDS: KETOROLAC 30 MG/1 ML VIAL IV SCH ×2 (06:08)
[2018-12-18] MEDS ORDERED: ROSUVASTATIN 10 MG TABLET PO SCH (09:00)
[2018-12-18] MEDS: metFORMIN 500 MG TABLET PO SCH ×2 (09:42→18:07)
[2018-12-18] MEDS: GLIMEPIRIDE 2 MG TABLET PO SCH (09:42)
[2018-12-18] MEDS: FERROUS SULFATE 325 MG TABLET PO SCH (09:42)
[2018-12-18] MEDS: MULTIVITAMIN (CENTRUM) TABLET PO SCH (09:42)
[2018-12-18] MEDS: MAGNESIUM OXIDE 400 MG TABLET PO SCH ×2 (09:42→21:02)
[2018-12-18] MEDS: METOPROLOL TARTRATE 25 MG TABLET PO SCH ×2 (09:43→21:00)
[2018-12-18] MEDS: DOCUSATE SODIUM 100 MG CAPSULE PO SCH (09:43)
[2018-12-18] MEDS: PANTOPRAZOLE 40 MG TABLET PO SCH (09:43)
[2018-12-18] MEDS: ASCORBIC ACID 500 MG TABLET PO SCH ×2 (09:43→21:01)
[2018-12-18] MEDS: LOSARTAN 50 MG TABLET PO SCH (09:43)
[2018-12-18] MEDS: INSULIN REGULAR 100 UNIT/ML SUBCUT SCH ×4 (09:46→20:59)
[2018-12-18] MEDS: CHLORHEXIDINE 0.12% ORAL RINSE 60 ML BOTTLE SWISH/SPIT SCH ×2 (11:17→21:11)
[2018-12-18] MEDS ORDERED: ASPIRIN CHEW 81 MG TABLET PO ONE (11:49)
[2018-12-19 04:43] LABS: Basophils % 0.4 % (0.0-0.8); Eosinophils # 0.3 10*3/uL (0.0-0.87); Hematocrit 36.7 VOL% (35.7-47.0); Immature Granulocytes % 0.7 %; Immature Granulocytes Absolute 0.06 #; Lymphocytes # 1.9 10*3/uL (1.4-4.0); Lymphocytes % 21.2 % (21.3-54.2); Mean Corpuscular HGB Conc 32.7 GM/DL (32-36); Mean Corpuscular Volume 86.2 FL (87-102); Mean Platelet Volume 11.5 FL (9.6-12.0); Monocytes % 10.7 % (1.7-12.7); Platelet Count 289 T/CUMM (130-400); Red Blood Count 4.26 MC/CUMM (3.8-5.5); Red Cell Distribution Width 15.1 % (9.3-17.3); White Blood Count 8.9 T/CUMM (4-12)
[2018-12-19 05:16] LABS: Alanine Aminotransferase 23 U/L (13-56); Albumin 3.2 G/DL (3.4-5.0); Alkaline Phosphatase 83 U/L (45-117); Aspartate Amino Transferase 9 U/L (0-37); Bilirubin,Indirect 0.5 MG/DL (0.0-1.0); Blood Urea Nitrogen 24 MG/DL (7-18); Glucose 142 MG/DL (74-106); Osmolality,Calculated 280.7 MOS/KG (273-304); Total Protein 6.7 G/DL (6.4-8.3)
[2018-12-19 08:16] VITALS: BP 139/79
[2018-12-19] MEDS ORDERED: ASPIRIN CHEW 81 MG TABLET PO SCH (09:00)
[2018-12-19] MEDS: MULTIVITAMIN (CENTRUM) TABLET PO SCH (09:03)
[2018-12-19] MEDS: metFORMIN 500 MG TABLET PO SCH (09:03)
[2018-12-19] MEDS: LOSARTAN 50 MG TABLET PO SCH (09:03)
[2018-12-19] MEDS: GLIMEPIRIDE 2 MG TABLET PO SCH (09:03)
[2018-12-19] MEDS: ASCORBIC ACID 500 MG TABLET PO SCH (09:04)
[2018-12-19] MEDS: PANTOPRAZOLE 40 MG TABLET PO SCH (09:04)
[2018-12-19] MEDS: FERROUS SULFATE 325 MG TABLET PO SCH (09:04)
[2018-12-19] MEDS: METOPROLOL TARTRATE 25 MG TABLET PO SCH (09:04)
[2018-12-19] MEDS: MAGNESIUM OXIDE 400 MG TABLET PO SCH (09:04)
[2018-12-19] MEDS: DOCUSATE SODIUM 100 MG CAPSULE PO SCH (09:05)
== END 2018-12-19 11:14 | disposition home health service (06) | DRG 234 ==
LOC: N.EDINP 18:37 → N.ED 18:37 → N.TELEN 23:30 → SUATTDRO 12-11 10:53 → N.CVR 12-14 08:34 → N.ICU 12-14 14:27 → N.CVR 12-14 14:37 → N.TELES 12-15 10:06
PROVIDERS: ADMIT Internal Medicine; ATTEND Internal Medicine Cardiovascular Disease
PROC: CLCCHCL (ICD-10-PCS; 2018-12-11 09:15)